=== PATIENT | male | born 1970 | race Caucasian/White ===

== ENCOUNTER 2020-11-17 01:31 | Observation (INO) | payer OTHER ==
[~2020-11-17] VITALS: Ht 188 cm; Wt 126.1 kg
[2020-11-17 02:20] LABS: HEMOGLOBIN 14.7 gm/dl (14.0-17.5); RED BLOOD COUNT 4.95 M/UL (4.20-5.50); WHITE BLOOD COUNT 13.7 K/UL (4.5-11.0)
[2020-11-17 02:42] LABS: BUN/CREATININE RATIO 15 (0-10)
[2020-11-17] MEDS ORDERED: TESTOSTERONE60 GM TD (13:11)
[2020-11-17] MEDS ORDERED: HUMALOG100 UNIT/3 SC (13:12)
[2020-11-17] MEDS ORDERED: LANTUS SOL100 UNIT/1 SQ (13:13)
[2020-11-17] MEDS ORDERED: METOPROLOL TART50 MG PO (13:14)
[2020-11-17] MEDS ORDERED: BENAZEPRIL HCL10 MG PO (13:14)
[2020-11-17] MEDS ORDERED: LOVASTATIN20 MG PO (13:15)
[2020-11-17] MEDS ORDERED: ASPIRIN81 MG PO (13:17)
[2020-11-18 03:21] LABS: HEMOGLOBIN 12.9 gm/dl (14.0-17.5); RED BLOOD COUNT 4.33 M/UL (4.20-5.50); WHITE BLOOD COUNT 13.5 K/UL (4.5-11.0)
[2020-11-18 17:02] LABS: BUN/CREATININE RATIO 16 (0-10)
[2020-11-19 04:10] LABS: HEMOGLOBIN 12.4 gm/dl (14.0-17.5); RED BLOOD COUNT 4.26 M/UL (4.20-5.50)
[2020-11-19 04:22] LABS: WHITE BLOOD COUNT 9.2 K/UL (4.5-11.0)
[2020-11-19 04:34] LABS: BUN/CREATININE RATIO 18 (0-10)
[2020-11-19] MEDS ORDERED: OXYCODONE HCL5 MG PO (12:07)
== END 2020-11-19 12:30 | disposition home or self-care (01) ==
LOC: ER1 01:31 → CDU 05:20 → MED SURG 4 05:20
PROVIDERS: Emergency Medicine; ADMIT Surgery
DX: K80.00 Calculus of gallbladder with acute cholecystitis without obstruction (principal); K82.A1 Gangrene of gallbladder in cholecystitis; I25.10 Atherosclerotic heart disease of native coronary artery without angina pectoris; I11.9 Hypertensive heart disease without heart failure; E11.9 Type 2 diabetes mellitus without complications; N17.9 Acute kidney failure, unspecified; E80.6 Other disorders of bilirubin metabolism; Z87.891 Personal history of nicotine dependence; Z95.5 Presence of coronary angioplasty implant and graft; Z79.82 Long term (current) use of aspirin; Z79.4 Long term (current) use of insulin; Z79.899 Other long term (current) drug therapy; Z20.822 Contact with and (suspected) exposure to COVID-19
CPT/HCPCS: 36415; 71045; 80048; 80053; 81001; 82550; 82553; 82962; 83605; 83690; 84484; 85025; 85027; 85610; 85730; 93005; 94760; 96372; 96374; 96375; 96376; 99285; G0378; J1100; J1170; J1644; J1885; J2001; J2250; J2270; J2405; J2543; J2550; J2704; J2710; J3010; J7030; J7120; Q9967; U0002

== ENCOUNTER → 2020-12-03 | Outpatient (CLI) | payer OTHER ==
[~2020-12-03] MED LIST: ASPIRIN81 MG PO; BENAZEPRIL HCL10 MG PO; CARAFATE 1 GM TA1 GM PO; HUMALOG100 UNIT/3 SC; LANTUS SOL100 UNIT/1 SQ; LOVASTATIN20 MG PO; METOPROLOL TART50 MG PO; OXYCODONE HCL5 MG PO; TESTOSTERONE60 GM TD
== END ==
LOC: NM 10:48
DX: K91.89 Other postprocedural complications and disorders of digestive system (principal)
CPT/HCPCS: 78226; A9537

== ENCOUNTER 2020-12-05 16:27 | Emergency (ER) | payer OTHER ==
[~2020-12-05 16:27] MED LIST changes: -CARAFATE 1 GM TA1 GM PO
[2020-12-05 17:12] LABS: HEMOGLOBIN 16.1 gm/dl (14.0-17.5); RED BLOOD COUNT 5.43 M/UL (4.20-5.50); WHITE BLOOD COUNT 9.1 K/UL (4.5-11.0)
[2020-12-05 17:36] LABS: BUN/CREATININE RATIO 17 (0-10)
[2020-12-05] MEDS ORDERED: CARAFATE 1 GM TA1 GM PO (22:09)
== END 2020-12-05 22:10 | disposition home or self-care (01) ==
LOC: ER1 16:27
PROVIDERS: Emergency Medicine
DX: R10.10 Upper abdominal pain, unspecified (principal); E11.9 Type 2 diabetes mellitus without complications; I10 Essential (primary) hypertension; Z90.49 Acquired absence of other specified parts of digestive tract
CPT/HCPCS: 80053; 82550; 82553; 83605; 83690; 83874; 84484; 85025; 87040; 93005; 96365; 96375; 99284; J1170; J2270; J2405; Q9967